=== PATIENT | male | born 1950 | race Hispanic/Latino ===

== ENCOUNTER → 2023-10-06 | Outpatient (CLI) | payer OTHER | END | disposition home or self-care (01) | LOC: SHCH 12:32 | PROVIDERS: ATTEND Internal Medicine Cardiovascular Disease | DX: I11.9 Hypertensive heart disease without heart failure (principal); R00.1 Bradycardia, unspecified | CPT/HCPCS: 93306 ==

== ENCOUNTER → 2023-12-07 | Outpatient (CLI) | payer OTHER | END | disposition home or self-care (01) | LOC: RAH 12:24 | PROVIDERS: ATTEND Family Medicine | DX: M19.032 Primary osteoarthritis, left wrist (principal); Z89.022 Acquired absence of left finger(s) | CPT/HCPCS: 73110 ==

== ENCOUNTER → 2024-11-11 | Outpatient (CLI) | payer OTHER ==
--- NOTE | 2024-11-11 14:37 | HMCIMG ---
CT CORONARY CALCIFICATION SCORING: Anatomic images were reviewed. The calcium score is being generated and reported separately. This report is for the visualized anatomy only. Visualized portions of the lungs are clear. Hilar and mediastinal structures appear normal. Osseous structures are unremarkable. Impression: 1. Negative noncardiac anatomic findings. 2. The calcium score is 64.2 consistent with a significant degree of calcified plaque. This is 75th percentile for a patient this age. CT was performed with one or more following dose reduction techniques: automated exposure control, adjustment of the mA and kv according to patient's size, or use of a iterative reconstruction technique.
== END | disposition home or self-care (01) ==
LOC: RAH 12:33
PROVIDERS: ATTEND Internal Medicine Cardiovascular Disease
DX: Z13.6 Encounter for screening for cardiovascular disorders (principal)
CPT/HCPCS: 75571